=== PATIENT | male | born 1990 | race Caucasian/White ===

== ENCOUNTER 2016-11-12 17:06 | Emergency (ER) | payer SELFPAY ==
[2016-11-12] MEDS ORDERED: Fluor-I-Strip/Ful-Flo OP ONE ×2 (17:33→17:49)
[2016-11-12] MEDS ORDERED: Tetcaine HCl OPHTHALMIC OP ONE ×2 (17:33→17:49)
[2016-11-12] MEDS ORDERED: Eye-Stream Solution OP ONE (17:33)
--- NOTE | 2016-11-12 17:38 | ERPHSYRPT ---
- History of Present Illness Time Seen by Provider: 11/12/16 17:30 Source: patient Exam Limitations: no limitations Patient Subjective Stated Complaint: PT REPORTS IRRITATION TO HIS LEFT EYE BEGINNING DON 1400-STATES HE REMOVED HIS CONTACT ET IRRITATION CONTINSUED- REPORTS TEARING-DENIES CHANGES IN VISION-DENIES INJURY Triage Nursing Assessment: PT PINK WARM ET DRY-REDNESS NOTED TO LEFT EYE-PUPILS REACTIVE Physician History: This is a 26-year-old white male he arrives with complaint of irritation to his left eye symptoms for a day or 2 however it is much worse since this afternoon around 2:00. Patient states that he removed his contact lenses afternoon and he noticed that he had pain in his left eye he has drainage he has not had any vision changes. Past medical history includes high blood pressure. Past surgical history includes tonsillectomy Patient apparently had a problem with his stomach muscles as a child. Timing/Duration: day(s) (irritation left eye for one to 2 days, worse today) Location: left eye Apparent Injury: possibly Associated Symptoms: pain, burning, redness, No sensitivity to light, No matting , No eyelid swelling, No foreign body sensation, No decreased vision, No blurred vision, No double vision Visual Assistive Devices: Contacts Chemical Exposure: No Trauma: No Welding Arc/Tanning Bed Exposure: No Allergies/Adverse Reactions: Penicillins Allergy (Severe, Verified 11/12/16 17:16) Difficulty Breathing Home Medications: No Home Meds 1 ea MC UD 11/12/16 [History] Hx Tetanus, Diphtheria Vaccination/Date Given: No Hx Influenza Vaccination/Date Given: No Hx Pneumococcal Vaccination/Date Given: No Immunizations Up to Date: Yes - Past Medical History Pertinent Past Medical History: Yes Cardiac History: Hypertension - Past Surgical History Past Surgical History: Yes Other Surgical History: stomach muscle 'collapse' as a child - Social History Smoking Status: Current every day smoker How long have you smoked: YRS Exposure to second hand smoke: Yes Drug Use: none Patient Lives Alone: No - Nursing Vital Signs Nursing Vital Signs: Initial Vital Signs Temperature 97.8 F Temperature Source Oral Pulse Rate 67 Respiratory Rate 22 Blood Pressure [Right Arm] 142/91 Pain Intensity 6 - Physical Exam General Appearance: mild distress Vision Acuity Right Eye: 20/50 Vision Acuity Left Eye: 20/100 Eye Exam: left eye: other (eyes PERRLA, EOMI fundi unremarkable left sclera injected left conjunctiva erythematous), bilateral eye: PERRL, EOMI Ears, Nose, Throat Exam: normal ENT inspection, TMs normal, pharynx normal, moist mucous membranes, No dry mucous membranes, No TM abnormal (R), No TM abnormal (L), No pharyngeal erythema, No tonsillar exudate Neck Exam: normal inspection, non-tender, supple, full range of motion Respiratory Exam: normal breath sounds, lungs clear, airway intact, No chest tenderness, No respiratory distress, No diminished breath sounds, No accessory muscle use, No prolonged expirations, No crackles/rales, No rhonchi, No wheezing , No stridor, No pleural rub Cardiovascular Exam: regular rate/rhythm, normal heart sounds, No murmur Gastrointestinal Exam: soft, normal bowel sounds, No tenderness, No distention, No mass, No guarding, No ecchymosis, No pulsatile mass, No rebound, No hernia, No hepatomegaly Extremity Exam: normal inspection, normal range of motion Neurologic: alert, oriented x 3, cooperative, nuclear medicine supervisor II-XII nml as tested, normal mood/affect, nml cerebellar function, nml station & gait, sensation nml, No motor deficits, No sensory deficit Skin Exam: normal color SpO2 Interpretation: normal (99%) SpO2: 99 Oxygen Delivery: Room Air - Course Nursing assessment & vital signs reviewed: Yes Ordered Tests: Active Orders 24 hr Category Date Time Status Visual Acuity STAT Care 11/12/16 17:33 Active Medication Summary Discontinued Medications Generic Name Dose Route Start Last Admin Trade Name Coni PRN Reason Stop Dose Admin Ciprofloxacin 2.5 ml 11/12/16 18:47 Ciloxan Ophth OP 11/12/16 18:48 STAT ONE Eye Irrigation Solution 15 ml 11/12/16 17:33 11/12/16 17:53 Eye-Stream Solution OP 11/12/16 17:34 15 ml STAT ONE Administration Eye Irrigation Solution Confirm 11/12/16 17:49 Eye-Stream Solution Administered 11/12/16 17:50 Dose 30 ml .ROUTE .STK-MED ONE Fluorescein Sodium 1 mg 11/12/16 17:33 11/12/16 17:53 Fcuui-Q-Wancr/Ful-Alexx OP 11/12/16 17:34 1 mg STAT ONE Administration Fluorescein Sodium Confirm 11/12/16 17:49 Itonw-D-Oksdg/Ful-Alexx Administered 11/12/16 17:50 Dose 1 mg OP .STK-MED ONE Tetracaine HCl 2 ml 11/12/16 17:33 11/12/16 17:53 Tetcaine Hcl Ophthalmic OP 11/12/16 17:34 2 ml STAT ONE Administration Tetracaine HCl Confirm 11/12/16 17:49 Tetcaine Hcl Ophthalmic Administered 11/12/16 17:50 Dose 2 ml OP .STK-MED ONE - Progress Progress: improved Progress Note: 11/12/16 18:48 Patient's eyes are inspected eyes PERRLA EOMI fundi are unremarkable. Left sclera is injected left conjunctiva is erythematous. Lids are everted on the left side no foreign bodies are noted. Left eye has tetracaine 0.5% instilled for comfort. Left eye is stained with floor saline. Patient with a small 2 mm abrasion on the left lateral cornea. Left eye is rinsed with sterile eyewash. Nurses Will instill Cipro ophthalmic drops 0.3% in the left eye. Will discharge patient patient has been instructed not to use his contacts patient is to follow-up with his publisher assistant/importer or exporter tomorrow. Will write for [facility] for pain and home with Cipro ophthalmic drops, one to 2 drops, 4 times a day for 5 days. - Departure Time of Disposition: 18:50 Departure Disposition: Home Clinical Impression: Corneal abrasion of left eye due to contact lens Conjunctivitis, left eye Qualifiers: Conjunctivitis type: unspecified Qualified Code(s): H10.9 - Unspecified conjunctivitis Condition: Fair Critical Care Time: No Referrals: DOCTOR,NO FAMILY [Primary Care Provider] - Additional Instructions: Return home. No reading no TV watching computers drive home with window shut. Cipro ophthalmic drops 0.3% one to 2 drops left eye 4 times a day for 5 days. [place] 5/325 #12 one orally every 4-6 hours as needed for pain. Follow-up with your publisher assistant/importer or exporter tomorrow. No contact lenses for one week. Return for acute distress or for severe symptoms Prescriptions: Hydrocodone Bit/Acetaminophen [[place] 5/325Mg] 1 tab PO Q4-6HPRN PRN #12 tablet PRN Reason: Pain
[2016-11-12] MEDS ORDERED: Eye-Stream Solution ONE (17:49)
[2016-11-12] MEDS ORDERED: Ciloxan OPHTH OP ONE (18:47)
[2016-11-12] MEDS ORDERED: Ciloxan OPHTH ONE (19:03)
[2016-11-12 19:23] VITALS: BP 138/86; PULSE 72; O2SAT 100
== END 2016-11-12 19:22 | disposition home or self-care (01) ==
LOC: ED 17:06
DX: H10.9 Unspecified conjunctivitis (principal); H18.822 Corneal disorder due to contact lens, left eye
CPT/HCPCS: 99283

== ENCOUNTER 2018-12-24 20:57 | Emergency (ER) | payer SELFPAY ==
[2018-12-24] MEDS ORDERED: Sodium Chloride 0.9% 1000 ML 1,000 ML IV STA (22:17)
[2018-12-24] MEDS ORDERED: TORAdol 30 mg Injection IV ONE (22:17)
[2018-12-24] MEDS ORDERED: Zofran 4 MG/2 ML VIAL IV ONE (22:17)
--- NOTE | 2018-12-24 22:21 | ERPHSYRPT ---
- History of Present Illness Time Seen by Provider: 12/24/18 22:12 Historian: patient Exam Limitations: no limitations Patient Subjective Stated Complaint: Around 1800 started having lower abd pain across the front, pain spreads to L side, some nausea, no vomiting Triage Nursing Assessment: Pt a/o, ambulates per self, abd soft, large, tender, and worse with palpation, abd sounds present x4 Physician History: 28-year-old white male with history of, anxiety, depression, PTSD, Patient arrives with complaint of suprapubic tube nominal pain radiating both laterally left and right symptoms since 6:00 this evening, Patient states no vomiting positive nausea no diarrhea no melena no hematochezia. No urinary symptoms. Past medical history includes anxiety, depression, PTSD. Past surgical history includes stomach surgery as an infant. Social history includes patient vapes Timing/Duration: today Activities at Onset: none Quality: cramping Abdominal Pain Onset Location: suprapubic Pain Radiation: other (bilateral lower abdomen) Severity of Pain-Max: moderate Severity of Pain-Current: mild Modifying Factors: Improves With: nothing Associated Symptoms: nausea, No back, No chest pain, No diaphoresis, No diarrhea , No fever/chills, No fatigue, No headache, No heartburn, No loss of appetite, No neck pain, No rash, No shortness of breath, No syncope, No testicular pain, No vomiting, No weakness Previous symptoms: no prior history Allergies/Adverse Reactions: Penicillins Allergy (Verified 08/21/17 23:07) Swelling Home Medications: raNITIdine HCl [Ranitidine HCl] 150 mg PO BID 12/24/18 [History] Hx Tetanus, Diphtheria Vaccination/Date Given: Yes Hx Influenza Vaccination/Date Given: No Hx Pneumococcal Vaccination/Date Given: No - Review of Systems Constitutional: No Fever, No Chills Eyes: No Symptoms Ears, Nose, & Throat: No Symptoms Respiratory: No Cough, No Dyspnea Cardiac: No Chest Pain, No Edema, No Syncope Abdominal/Gastrointestinal: Abdominal Pain, Nausea, No Vomiting, No Diarrhea, No Constipation, No Hematemesis, No Hematochezia, No Melena, No Dysphagia, No Appetite Changes Genitourinary Symptoms: No Dysuria Musculoskeletal: No Back Pain, No Neck Pain Skin: No Symptoms, No Rash Neurological: No Dizziness, No Focal Weakness, No Sensory Changes Psychological: No Symptoms Endocrine: No Symptoms All Other Systems: Reviewed and Negative - Past Medical History Pertinent Past Medical History: Yes Psycho-Social History: Anxiety, Depression Other Medical History: PTSD - Past Surgical History Past Surgical History: Yes Gastrointestinal: Other Other Surgical History: stomach surgery at 8 mos - Social History Smoking Status: Former smoker How long have you smoked: 9 Exposure to second hand smoke: Yes Drug Use: none Patient Lives Alone: No - Nursing Vital Signs Nursing Vital Signs: Initial Vital Signs Temperature 98.0 F 12/24/18 21:45 Pulse Rate 65 12/24/18 21:45 Respiratory Rate 20 12/24/18 21:45 Blood Pressure 144/87 12/24/18 21:45 O2 Sat by Pulse Oximetry 100 12/24/18 21:45 Pain Scale Pain Intensity 6 - Physical Exam General Appearance: no apparent distress, alert Eye Exam: PERRL/EOMI, eyes nml inspection Ears, Nose, Throat Exam: normal ENT inspection, pharynx normal, moist mucous membranes Neck Exam: normal inspection, non-tender, supple, full range of motion Respiratory Exam: normal breath sounds, lungs clear, No respiratory distress Cardiovascular Exam: regular rate/rhythm, normal heart sounds, capillary refill <2 sec Gastrointestinal/Abdomen Exam: soft, normal bowel sounds, tenderness ( suprapubic tenderness), No distention, No mass, No guarding, No ecchymosis, No pulsatile mass, No rebound, No hernia, No hepatomegaly, No organomegaly, No splenomegaly, No bruit Back Exam: normal inspection, normal range of motion, No CVA tenderness, No vertebral tenderness Extremity Exam: normal inspection, normal range of motion, pelvis stable Neurologic Exam: alert, oriented x 3, cooperative, bale tie machine operator II-XII nml as tested, normal mood/affect, nml cerebellar function, sensation nml, No motor deficits Skin Exam: normal color, warm, dry SpO2 Interpretation: normal (100%) SpO2: 100 - CT Exams Abdomen/Pelvis CT Interpretation: Tele-radiologist Report (CT abdomen and pelvis: Impression 1. Diffuse fatty infiltration of the liver. 2. Tiny fat containing umbilical her with possible fat incaration. 3. Appendix is visualized and appears to be normal.) Ordered Tests: Active Orders 24 hr Category Date Time Status IV Insertion STAT Care 12/24/18 22:17 Active ABDOMEN AND PELVIS W CONTRAST [CT] Stat Exams 12/25/18 00:22 Taken AMYLASE Stat Lab 12/24/18 22:35 Completed CBC W DIFF Stat Lab 12/24/18 22:35 Completed CMP Stat Lab 12/24/18 22:35 Completed LIPASE Stat Lab 12/24/18 22:35 Completed UA W/RFX UR CULTURE Stat Lab 12/24/18 23:45 Completed Medication Summary Discontinued Medications Generic Name Dose Route Start Last Admin Trade Name Coni PRN Reason Stop Dose Admin Sodium Chloride 1,000 mls @ 999 mls/hr 12/24/18 22:17 12/25/18 01:25 Sodium Chloride 0.9% 1000 Ml IV 12/24/18 23:17 Infused .Q1H1M STA Infusion Sodium Chloride Confirm 12/24/18 22:42 Sodium Chloride 0.9% 1000 Ml Administered 12/24/18 22:43 Dose 1,000 mls @ ud .ROUTE .STK-MED ONE Ketorolac Tromethamine 30 mg 12/24/18 22:17 12/24/18 22:44 Toradol 30 Mg Injection IV 12/24/18 22:18 30 mg STAT ONE Administration Ketorolac Tromethamine Confirm 12/24/18 22:42 Toradol 30 Mg Injection Administered 12/24/18 22:43 Dose 30 mg .ROUTE .STK-MED ONE Ondansetron HCl 4 mg 12/24/18 22:17 12/24/18 22:44 Zofran 4 Mg/2 Ml Vial IV 12/24/18 22:18 4 mg STAT ONE Administration Ondansetron HCl Confirm 12/24/18 22:42 Zofran 4 Mg/2 Ml Vial Administered 12/24/18 22:43 Dose 4 mg .ROUTE .STK-MED ONE Lab/Rad Data: Laboratory Result Diagrams 12/24/18 22:35 12/24/18 22:35 Laboratory Results 12/24/18 12/24/18 12/24/18 Range/Units 23:45 22:35 22:35 WBC 9.4 (4.0-10.5) K/mm3 RBC 5.62 H (4.1-5.6) M/mm3 Hgb 16.6 (12.5-18.0) gm/dl Hct 48.5 (42-50) % MCV 86.3 (78-100) fl MCH 29.5 (26-32) pg MCHC 34.2 (32-36) g/dl RDW 12.4 (11.5-14.0) % Plt Count 275 (150-450) K/mm3 MPV 10.4 H (6-9.5) fl Gran % 72.1 H (36.0-66.0) % Eos # (Auto) 0.04 (0-0.5) Absolute Lymphs (auto) 1.91 (1.0-4.6) Absolute Monos (auto) 0.66 (0.0-1.3) Lymphocytes % 20.3 L (24.0-44.0) % Monocytes % 7.0 (0.0-12.0) % Eosinophils % 0.4 (0.00-5.0) % Basophils % 0.2 (0.0-0.4) % Absolute Granulocytes 6.79 (1.4-6.9) Basophils # 0.02 (0-0.4) Sodium 139 (137-145) mmol/L Potassium 4.4 (3.5-5.1) mmol/L Chloride 101 (98-107) mmol/L Carbon Dioxide 30 (22-30) mmol/L Anion Gap 13.0 (5-15) MEQ/L BUN 21 H (9-20) mg/dL Creatinine 1.07 (0.66-1.25) mg/dL Estimated GFR > 60.0 ML/MIN Glucose 118 H (74-106) mg/dL Calcium 10.0 (8.4-10.2) mg/dL Total Bilirubin 1.10 (0.2-1.3) mg/dL AST 53 (17-59) U/L ALT 70 H (0-50) U/L Alkaline Phosphatase 77 (38-126) U/L Serum Total Protein 8.5 H (6.3-8.2) g/dL Albumin 5.0 (3.5-5.0) g/dL Amylase 86 (30-110) U/L Lipase 37 (23-300) U/L Urine Color YELLOW (YELLOW) Urine Appearance CLEAR (CLEAR) Urine pH 5.0 (5-6) Ur Specific Simpson 1.024 (1.005-1.025) Urine Protein NEGATIVE (Negative) Urine Ketones NEGATIVE (NEGATIVE) Urine Blood SMALL (0-5) Jorge/ul Urine Nitrite NEGATIVE (NEGATIVE) Urine Bilirubin NEGATIVE (NEGATIVE) Urine Urobilinogen NEGATIVE (0-1) mg/dL Ur Leukocyte Esterase NEGATIVE (NEGATIVE) Urine WBC (Auto) NONE (0-5) /HPF Urine RBC (Auto) 3-5 (0-2) /HPF U Epithel Cells (Auto) NONE (FEW) /HPF Urine Bacteria (Auto) NONE (NEGATIVE) /HPF Urine Mucus (Auto) SLIGHT (NEGATIVE) /HPF Urine Culture Reflexed NO (NO) Urine Glucose NEGATIVE (NEGATIVE) mg/dL - Progress Progress: improved Progress Note: 12/25/18 00:23 28-year-old white male arrives with complaint of pain in the suprapubic area radiating both right and left .symptoms since this evening patient nauseous. Patient improved but still with abdominal pain in the above noted area labs essentially normal however patient states he continues with his pain. Will go ahead and obtain CT abdomen and pelvis with contrast to rule out appendicitis. 12/25/18 02:[address] remarkable for diffuse fatty infiltration of the liver, tiny fat containing umbilical hernia with possible fat incarceration, appendix is normal. Patient's abdominal pain is in the low suprapubic area. Patient is not in acute distress at this time. Will discharge patient. Patient to follow-up with his family doctor. - Departure Time of Disposition: 02:36 Departure Disposition: Home Clinical Impression: Abdominal pain Qualifiers: Abdominal location: lower abdomen, unspecified Qualified Code(s): R10.30 - Lower abdominal pain, unspecified Condition: Fair Critical Care Time: No Referrals: DOCTOR,NO FAMILY [Primary Care Provider] - Additional Instructions: Return home. Plenty of fluids. Clear fluids only 24-48 hours if abdominal pain. Follow-up with your family doctor if symptoms no better in 24-48 hours, worse, or persist longer than one week. Return for acute distress or for severe symptoms. Tylenol every 4 hours as needed for pain.
[2018-12-24 22:36] LABS: BASOPHIL % 0.2 % (0.0-0.4); Basophil (Absolute #) 0.02 (0-0.4); Eosinophil % 0.4 % (0.00-5.0); Eosinophil (Absolute #) 0.04 (0-0.5); Granulocyte Absolute (ANC) 6.79 (1.4-6.9); Granulocytes % 72.1 % (36.0-66.0); Hematocrit 48.5 % (42-50); Hemoglobin 16.6 gm/dl (12.5-18.0); Lymphocyte (Absolute #) 1.91 (1.0-4.6); Lymphocytes % 20.3 % (24.0-44.0); Mean Cell Volume 86.3 fl (78-100); Mean Corpuscular Hemoglobin 29.5 pg (26-32); Mean Corpuscular Hgb Concent. 34.2 g/dl (32-36); Mean Platelet Volume 10.4 fl (6-9.5); Monocyte (Absolute #) 0.66 (0.0-1.3); Platelet Count 275 K/mm3 (150-450); Red Blood Count 5.62 M/mm3 (4.1-5.6); Red Cell Distribution Width 12.4 % (11.5-14.0); White Blood Count 9.4 K/mm3 (4.0-10.5)
[2018-12-24] MEDS ORDERED: Zofran 4 MG/2 ML VIAL ONE (22:42)
[2018-12-24] MEDS ORDERED: Sodium Chloride 0.9% 1000 ML 1,000 ML ONE (22:42)
[2018-12-24] MEDS ORDERED: TORAdol 30 mg Injection ONE (22:42)
[2018-12-24 22:51] LABS: ALKALINE PHOSPHATASE 77 U/L (38-126); AMYLASE 86 U/L (30-110); BLOOD UREA NITROGEN 21 mg/dL (9-20); CHLORIDE 101 mmol/L (98-107); Carbon Dioxide 30 mmol/L (22-30); Creatinine 1 1.07 mg/dL (0.66-1.25); Glucose 118 mg/dL (74-106); LIPASE 37 U/L (23-300); Potassium 4.4 mmol/L (3.5-5.1); SGOT/AST 53 U/L (17-59); SGPT/ALT 70 U/L (0-50); SODIUM 139 mmol/L (137-145); Total Protein 8.5 g/dL (6.3-8.2)
[2018-12-25 00:05] LABS: Appearance CLEAR (CLEAR); Bilirubin NEGATIVE (NEGATIVE); Glucose NEGATIVE (NEGATIVE); Ketones NEGATIVE (NEGATIVE); Leukocyte Esterase NEGATIVE (NEGATIVE); Mucus SLIGHT /HPF (NEGATIVE); Nitrite NEGATIVE (NEGATIVE); Protein,Urine Dip NEGATIVE (Negative); Specific Gravity 1.024 (1.005-1.025); Urobilinogen NEGATIVE mg/dL (0-1)
[2018-12-25 00:12] LABS: Blood SMALL Ery/ul (0-5)
[2018-12-25 00:34] VITALS: BP 109/72
[2018-12-25 01:47] VITALS: PULSE 80; O2SAT 100
--- NOTE | 2018-12-25 09:01 | XRAY ---
Indication: Suprapubic pain. Nausea. Multiple contiguous axial images obtained through the abdomen and pelvis using 80 cc Isovue 370 contrast only. Comparison: None Lung bases demonstrates mild bibasilar dependent atelectasis. No infiltrate or effusion. Heart is not enlarged. Small hiatal hernia. Noncontrasted stomach and bowel loops appear nonobstructed. Normal appendix. Mild scattered colonic fecal debris throughout. No free fluid/air. Diffuse fatty liver without focal solid/cystic mass. 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 Remaining liver, gallbladder, pancreas, spleen, adrenal glands, kidneys, ureters, bladder, and aorta appear unremarkable. No pathologic retroperitoneal lymphadenopathy. Osseous structures intact. No ventral or inguinal hernias. Impression: 1. Mild fecal stasis without obstruction, fatty liver, and small hiatal hernia. 2. 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 3. Remaining CT abdomen/pelvis with contrast exam is negative. Comment: Preliminary interpretation was made by [facility]. No critical discrepancy. CTDI 23.68
== END 2018-12-25 03:01 | disposition home or self-care (01) ==
LOC: ED 20:57 → MERGE 20:57 → ED 12-25 03:01
DX: R10.30 Lower abdominal pain, unspecified (principal); F41.8 Other specified anxiety disorders; F43.10 Post-traumatic stress disorder, unspecified
CPT/HCPCS: 36000; 36415; 74177; 80053; 81001; 82150; 83690; 85025; 96360; 96374; 96375; 99284; J1885; J2405

== ENCOUNTER 2022-05-26 18:48 | Emergency (ER) | payer SELFPAY ==
[2022-05-26] MEDS ORDERED: NORCO 5/325 MG PO ONE (19:23)
[2022-05-26] MEDS ORDERED: CLEOCIN 150 MG CAPSULE PO ONE (19:24)
[2022-05-26] MEDS ORDERED: NORCO 5/325 MG ONE (19:26)
[2022-05-26] MEDS ORDERED: CLEOCIN 150 MG CAPSULE ONE (19:26)
--- NOTE | 2022-05-26 19:38 | ERPHSYRPT ---
- History of Present Illness Time Seen by Provider: 05/26/22 18:55 Source: patient Exam Limitations: no limitations Patient Subjective Stated Complaint: pt here for toothache to lower left jaw for 2 days, he is from out of town Triage Nursing Assessment: pt alert, resp easy, face mask in place, has decay to multi teeth, Physician History: 24-year-old male presented to the ER with chief complaint of left lower jaw pain for the last couple of days. Has multiple dental caries with periodontal disease. Moderate to severe sharp pain with movements of jaw and some associated swelling. No fever or chills reported. Timing/Duration: gradual onset, days (2) Severity: moderate ENT Location: dental Prearrival Treatment: over the counter meds Associated Symptoms: facial pain/swelling, tooth pain Allergies/Adverse Reactions: Penicillins Allergy (Severe, Verified 05/26/22 18:58) Difficulty Breathing Home Medications: Omeprazole Magnesium [Prilosec Otc] 20 mg PO DAILY 05/26/22 [History] Hx Tetanus, Diphtheria Vaccination/Date Given: No Hx Influenza Vaccination/Date Given: No Hx Pneumococcal Vaccination/Date Given: No Immunizations Up to Date: Yes Travel Risk - International Travel Have you traveled outside of the country in past 3 weeks: No - Coronavirus Screening Are you exhibiting any of the following symptoms?: No Close contact with a COVID-19 positive Pt in past 14-21 Days: No - Vaccine Status Have you recieved a Covid-19 vaccination: No - Review of Systems Constitutional: No Symptoms Ears, Nose, & Throat: Mouth Pain, Mouth Swelling, Loose Teeth Respiratory: No Symptoms Cardiac: No Symptoms Abdominal/Gastrointestinal: No Symptoms Musculoskeletal: No Symptoms Skin: No Symptoms Neurological: No Symptoms Hematologic/Lymphatic: No Symptoms Immunological/Allergic: No Symptoms - Past Medical History Pertinent Past Medical History: Yes Cardiac History: Hypertension Psycho-Social History: Depression, Anxiety Other Medical History: PTSD - Past Surgical History Past Surgical History: Yes Gastrointestinal: Other Other Surgical History: stomach surgery at 8 mos - Social History Smoking Status: Never smoker How long have you smoked: 9 Exposure to second hand smoke: No Drug Use: marijuana Patient Lives Alone: No - Nursing Vital Signs Nursing Vital Signs: Initial Vital Signs Pulse Rate 64 05/26/22 18:54 Respiratory Rate 18 05/26/22 18:54 Blood Pressure 159/86 05/26/22 18:54 O2 Sat by Pulse Oximetry 97 05/26/22 18:54 Pain Scale Pain Intensity 10 - Physical Exam General Appearance: no apparent distress, alert Eye Exam: bilateral eye: normal inspection, PERRL, EOMI Ear Exam: bilateral ear: auricle normal, canal normal, TM normal Nasal Exam: normal inspection Throat Exam: normal, pharynx normal, dental tenderness (Left lower premolar and molar with caries and periodontal disease, mild gingival tenderness. No fluctuation.), moist mucus membranes Neck Exam: normal inspection, non-tender, supple, full range of motion Cardiovascular/Respiratory Exam: normal breath sounds, regular rate/rhythm Neurologic Exam: alert, oriented x 3, cooperative, vamp seamer II-XII nml as tested Skin Exam: normal color SpO2 Interpretation: normal SpO2: 97 O2 Delivery: Room Air Ordered Tests: Medication Summary Discontinued Medications Generic Name Dose Route Start Last Admin Trade Name Coni PRN Reason Stop Dose Admin Hydrocodone Bitart/Acetaminophen 1 tab 05/26/22 19:23 05/26/22 19:27 Hydrocodone/Apap 5/325 Mg Tablet PO 05/26/22 19:24 1 tab STAT ONE Administration Hydrocodone Bitart/Acetaminophen Confirm 05/26/22 19:26 Hydrocodone/Apap 5/325 Mg Tablet Administered 05/26/22 19:27 Dose 1 tab .ROUTE .STK-MED ONE Clindamycin HCl 300 mg 05/26/22 19:24 05/26/22 19:27 Clindamycin Hcl 150 Mg Capsule PO 05/26/22 19:25 300 mg STAT ONE Administration Clindamycin HCl Confirm 05/26/22 19:26 Clindamycin Hcl 150 Mg Capsule Administered 05/26/22 19:27 Dose 300 mg .ROUTE .STK-MED ONE - Progress Progress: pain not gone completely Progress Note: 05/26/22 19:36 Started on clindamycin. Given symptomatic treatment for pain. We will continue with NSAIDs and clindamycin to go home and outpatient dental follow-up recommended. Counseled pt/family regarding: diagnosis, need for follow-up - Departure Departure Disposition: Home Clinical Impression: Dental infection Condition: Stable Critical Care Time: No Referrals: DOCTOR,NO FAMILY [Primary Care Provider] - Follow up/PCP as directed KAY MARINELLI DDS [NON-STAFF PHY W/O PRIVILEGES] - Follow up/PCP as directed (In 2 days for reevaluation) Instructions: Tooth Abscess (DC), Dental Pain (DC) Additional Instructions: Take Tylenol/ibuprofen as needed for pain. Follow-up with dentist for reevaluation. Return to ER for any worsening. Prescriptions: Ibuprofen 600 mg PO Q6HPRN PRN 10 Days #20 tablet PRN Reason: Pain clindamycin HCL [Clindamycin HCl] 300 mg PO QID 7 Days #28 cap
[2022-05-26 19:48] VITALS: BP 133/81; PULSE 60; O2SAT 99
== END 2022-05-26 19:46 | disposition home or self-care (01) ==
LOC: ED 18:48
DX: K04.7 Periapical abscess without sinus (principal); R68.84 Jaw pain; I10 Essential (primary) hypertension; Z28.310 Unvaccinated for COVID-19
CPT/HCPCS: 99282; A9270-GY

== ENCOUNTER 2022-10-09 19:09 | Emergency (ER) | payer OTHER ==
--- NOTE | 2022-10-09 19:15 | ERPHSYRPT ---
- History of Present Illness Time Seen by Provider: 10/09/22 19:15 Source: patient Exam Limitations: no limitations Physician History: This is a right-handed 32-year-old white male who accidentally slammed his left hand primarily palmar aspect with a sledgehammer prior to arrival while splitting wood. The area is swollen tender and ecchymotic. Occurred: just prior to arrival Method of Injury: direct blow Quality: constant, aching (Sledgehammer), throbbing Severity of Pain-Max: moderate Severity of Pain-Current: moderate Extremities Pain Location: hand: left, thumb: left Modifying Factors: Improves With: movement Associated Symptoms: none Allergies/Adverse Reactions: Penicillins Allergy (Severe, Verified 05/26/22 18:58) Difficulty Breathing Home Medications: Omeprazole Magnesium [Prilosec Otc] 20 mg PO DAILY 05/26/22 [History] Hx Tetanus, Diphtheria Vaccination/Date Given: No Hx Influenza Vaccination/Date Given: No Hx Pneumococcal Vaccination/Date Given: No Travel Risk - International Travel Have you traveled outside of the country in past 3 weeks: No - Coronavirus Screening Are you exhibiting any of the following symptoms?: No Close contact with a COVID-19 positive Pt in past 14-21 Days: No - Vaccine Status Have you recieved a Covid-19 vaccination: No - Review of Systems Constitutional: No Symptoms Eyes: No Symptoms Ears, Nose, & Throat: No Symptoms Respiratory: No Symptoms Cardiac: No Symptoms Abdominal/Gastrointestinal: No Symptoms Genitourinary Symptoms: No Symptoms Musculoskeletal: Injury (Left hand) Skin: No Symptoms Neurological: No Symptoms Psychological: No Symptoms Endocrine: No Symptoms Hematologic/Lymphatic: No Symptoms Immunological/Allergic: No Symptoms All Other Systems: Reviewed and Negative - Past Medical History Pertinent Past Medical History: Yes Cardiac History: Hypertension Psycho-Social History: Depression, Anxiety Other Medical History: PTSD - Past Surgical History Past Surgical History: Yes Gastrointestinal: Other Other Surgical History: stomach surgery at 8 mos - Social History Smoking Status: Never smoker How long have you smoked: 9 Exposure to second hand smoke: No Drug Use: marijuana Patient Lives Alone: No - Nursing Vital Signs Nursing Vital Signs: Initial Vital Signs Temperature 97.1 F 10/09/22 19:11 Pulse Rate 78 10/09/22 19:11 Respiratory Rate 18 10/09/22 19:11 Blood Pressure 156/83 10/09/22 19:11 O2 Sat by Pulse Oximetry 98 10/09/22 19:11 Pain Scale Pain Intensity 6 - Physical Exam General Appearance: no apparent distress, alert, anxiety Eyes, Ears, Nose, Throat Exam: normal ENT inspection, moist mucous membranes Neck Exam: normal inspection, non-tender, supple, full range of motion Cardiovascular/Respiratory Exam: chest non-tender, no respiratory distress Abdominal Exam: non-tender Back Exam: normal inspection, normal range of motion, No CVA tenderness, No vertebral tenderness Shoulder Exam: normal inspection, non-tender, no evidence of injury, normal ROM Elbow/Forearm Exam: normal inspection, non-tender, no evidence of injury, normal ROM Wrist Exam: normal inspection, non-tender, no evidence of injury, normal ROM Hand Exam: ecchymosis, soft tissue tenderness, swelling Neuro/Tendon Exam: normal sensation, normal motor functions, normal tendon functions, responds to pain, no evidence tendon injury Mental Status Exam: alert, oriented x 3, cooperative Skin Exam: ecchymosis SpO2 Interpretation: normal O2 Delivery: Room Air - Course Nursing assessment & vital signs reviewed: Yes Ordered Tests: Active Orders 24 hr Category Date Time Status FINGER(S) Stat Exams 10/09/22 19:16 Taken Medication Summary Discontinued Medications Generic Name Dose Route Start Last Admin Trade Name Coni PRAyla Reason Stop Dose Admin Ibuprofen 600 mg 10/09/22 19:27 10/09/22 19:33 Ibuprofen 600 Mg Tablet PO 10/09/22 19:28 600 mg STAT ONE Administration Ibuprofen Confirm 10/09/22 19:32 Ibuprofen 600 Mg Tablet Administered 10/09/22 19:33 Dose 600 mg .ROUTE .STK-MED ONE Oxycodone/Acetaminophen 1 tab 10/09/22 19:27 10/09/22 19:34 Oxycodone Hcl/Apap 5 Mg/325 Mg Tablet PO 10/09/22 19:28 1 tab STAT STA Administration Oxycodone/Acetaminophen Confirm 10/09/22 19:32 Oxycodone Hcl/Apap 5 Mg/325 Mg Tablet Administered 10/09/22 19:33 Dose 1 tab .ROUTE .STK-MED ONE - Progress Progress: improved, pain not gone completely Progress Note: 10/09/22 19:36 X-ray left hand shows no acute fracture or dislocation. Counseled pt/family regarding: diagnosis, need for follow-up, rad results - Departure Departure Disposition: Home Clinical Impression: Contusion of left hand Condition: Stable Critical Care Time: No Referrals: DOCTOR,NO FAMILY [Primary Care Provider] - Follow up/PCP as directed Additional Instructions: Ice bath (ice plus water) 3 times a day for the next 72 hours. Add ibuprofen 600 mg orally with food 3 times a day for the next 5 days. Follow-up with your primary care provider for further evaluation management. We will be in over read of the x-ray by radiology tomorrow morning. If the findings are different than what we were told this evening, we will contact you before noon tomorrow. Prescriptions: Oxycodone HCl/Acetaminophen [Percocet 5-325 mg Tablet] 1 each PO Q8H PRN PRN #6 tablet MDD 3 PRN Reason: Moderate To Severe Pain
[2022-10-09 19:20] VITALS: BP 156/83; PULSE 78; O2SAT 98
[2022-10-09] MEDS ORDERED: MOTRIN 600 MG PO ONE (19:27)
[2022-10-09] MEDS ORDERED: PERCOCET TABLET 5/325MG PO STA (19:27)
[2022-10-09] MEDS ORDERED: PERCOCET TABLET 5/325MG ONE (19:32)
[2022-10-09] MEDS ORDERED: MOTRIN 600 MG ONE (19:32)
--- NOTE | 2022-10-10 08:39 | XRAY ---
Indication: Pain following injury. Comparison: None 3 view left thumb obtained. No bony, articular, or soft tissue abnormalities.
== END 2022-10-09 19:46 | disposition home or self-care (01) ==
LOC: ED 19:09
DX: S60.222A Contusion of left hand, initial encounter (principal); W20.8XXA Other cause of strike by thrown, projected or falling object, initial encounter; M79.642 Pain in left hand; Z28.310 Unvaccinated for COVID-19; I10 Essential (primary) hypertension; Z79.891 Long term (current) use of opiate analgesic
CPT/HCPCS: 73140; 99283; A9270-GY

== ENCOUNTER 2022-11-12 16:36 | Emergency (ER) | payer OTHER ==
--- NOTE | 2022-11-12 16:47 | ERPHSYRPT ---
- History of Present Illness Time Seen by Provider: 11/12/22 16:47 Source: patient, family Exam Limitations: no limitations Physician History: This is a right-handed 32-year-old white male who accidentally cut his left thumb with a kitchen knife prior to arrival. Patient tetanus status is unknown at this time. Occurred: just prior to arrival Method of Injury: other (Accidental laceration) Severity of Pain-Max: mild Severity of Pain-Current: mild Extremities Pain Location: thumb: left (Half a centimeter in laceration) Modifying Factors: Improves With: nothing Associated Symptoms: none Allergies/Adverse Reactions: Penicillins Allergy (Severe, Verified 11/12/22 16:50) Difficulty Breathing Home Medications: Omeprazole Magnesium [Prilosec Otc] 20 mg PO DAILY 05/26/22 [History] Hx Tetanus, Diphtheria Vaccination/Date Given: No Hx Influenza Vaccination/Date Given: No Hx Pneumococcal Vaccination/Date Given: No Travel Risk - International Travel Have you traveled outside of the country in past 3 weeks: No - Coronavirus Screening Are you exhibiting any of the following symptoms?: No Close contact with a COVID-19 positive Pt in past 14-21 Days: No - Vaccine Status Have you recieved a Covid-19 vaccination: No - Review of Systems Constitutional: No Symptoms Eyes: No Symptoms Ears, Nose, & Throat: No Symptoms Respiratory: No Symptoms Cardiac: No Symptoms Abdominal/Gastrointestinal: No Symptoms Genitourinary Symptoms: No Symptoms Musculoskeletal: No Symptoms Skin: Other (Laceration dorsal aspect left thumb) Neurological: No Symptoms Psychological: No Symptoms Endocrine: No Symptoms Hematologic/Lymphatic: No Symptoms Immunological/Allergic: No Symptoms All Other Systems: Reviewed and Negative - Past Medical History Pertinent Past Medical History: Yes Cardiac History: Hypertension Psycho-Social History: Depression, Anxiety Other Medical History: PTSD - Past Surgical History Past Surgical History: Yes Gastrointestinal: Other Other Surgical History: stomach surgery at 8 mos - Social History Smoking Status: Never smoker How long have you smoked: 9 Exposure to second hand smoke: No Drug Use: marijuana Patient Lives Alone: No - Nursing Vital Signs Nursing Vital Signs: Initial Vital Signs Temperature 98.4 F 11/12/22 16:49 Pulse Rate 82 11/12/22 16:49 Respiratory Rate 18 11/12/22 16:49 Blood Pressure 150/93 11/12/22 16:49 O2 Sat by Pulse Oximetry 97 11/12/22 16:49 Pain Scale Pain Intensity 8 - Physical Exam General Appearance: no apparent distress, alert Eyes, Ears, Nose, Throat Exam: normal ENT inspection, moist mucous membranes Neck Exam: normal inspection, non-tender, supple, full range of motion Cardiovascular/Respiratory Exam: chest non-tender, no respiratory distress Abdominal Exam: non-tender Back Exam: normal inspection, normal range of motion, No CVA tenderness, No vertebral tenderness Shoulder Exam: normal inspection, non-tender, no evidence of injury, normal ROM Elbow/Forearm Exam: normal inspection, non-tender, no evidence of injury, normal ROM Wrist Exam: normal inspection, non-tender, no evidence of injury, normal ROM Hand Exam: normal ROM, laceration (0.5 cm laceration of skin, dorsal aspect, left thumb, neurovascularly intact, tendon intact) Neuro/Tendon Exam: normal sensation, normal motor functions, normal tendon functions, responds to pain, no evidence tendon injury Mental Status Exam: alert, oriented x 3 Skin Exam: normal color, warm, dry, laceration (0.5 cm laceration dorsal aspect left thumb) SpO2 Interpretation: normal O2 Delivery: Room Air Procedures - Laceration/Wound Repair Left Dorsal Hand Time of Procedure: 18:10 Wound Location: Left, hand (Dorsal aspect left thumb) Wound Length (cm): 0.5 Wound's Depth, Shape: superficial, linear Wound Explored: clean (No foreign body noted. Evaluation performed in a bloodless field to the base.) Irrigated: Yes Hibiclens Prep: Yes Wound Repaired With: Steri-strips, Dermabond Progress: 11/12/22 18:10 Area was cleaned and dried with Hibiclens/normal saline solution. There was dried with 4 x 4 gauze. The area was then cleaned with benzoin solution, Dermabond glue was placed to approximate the skin edges followed by half-inch Steri-Strips. Pressure dressing was applied as was a thumb splint. There were no complications. Patient told procedure well Ordered Tests: Medication Summary Discontinued Medications Generic Name Dose Route Start Last Admin Trade Name Freq PRN Reason Stop Dose Admin Diphtheria/Tetanus/Acell Pertussis 0.5 ml 11/12/22 18:04 Tdap --Diph,Pertuss(Acell),Tet Vac/Pf 0.5 Ml Vial IM 11/12/22 18:05 .ONCE ONE - Departure Departure Disposition: Home Clinical Impression: Laceration of left thumb Condition: Stable Critical Care Time: No Referrals: DOCTOR,NO FAMILY [Primary Care Provider] - Follow up/PCP as directed Additional Instructions: Keep the current dressing in place and in a splint for 48 hours. After 48 hours, may remove the splint and the dressing. Leave the Steri-Strips in place until they fall off on their own in approximately 7 days. As they are curling up, do not pull them off. Use Tylenol and ibuprofen for pain control.
[2022-11-12 16:50] VITALS: O2SAT 97
[2022-11-12] MEDS ORDERED: Adacel Vial IM ONE ×2 (18:04→18:21)
[2022-11-12 18:35] VITALS: BP 153/82; PULSE 76
== END 2022-11-12 18:44 | disposition home or self-care (01) ==
LOC: ED 16:36
DX: S61.012A Laceration without foreign body of left thumb without damage to nail, initial encounter (principal); W26.0XXA Contact with knife, initial encounter; I10 Essential (primary) hypertension; Z28.310 Unvaccinated for COVID-19
CPT/HCPCS: 12001; 90471; 90715; 99282

== ENCOUNTER 2023-09-27 07:01 | Emergency (ER) | payer SELFPAY ==
[2023-09-27 07:37] VITALS: RESP 18; TEMP 97.3; O2SAT 98
--- NOTE | 2023-09-27 08:00 | ERPHSYRPT ---
- History of Present Illness Time Seen by Provider: 09/27/23 07:40 Source: patient Exam Limitations: no limitations Patient Subjective Stated Complaint: Shoulder pain (Right) Triage Nursing Assessment: Patient ambulated back to ED and transferred self to bed. Patient A+O X3. Patient's skin pink, warm and dry. Patient complains of right shoulder pain that goes into back and chest when moving 7/10. Patient states he lifted on his disabled dad a few days ago and has been hurting since. Physician History: Patient is a 33-year-old white male who on Saturday had to exert himself severely to get his disabled father back into his wheelchair after he suffered a fall into a tub. He has had pain in his right shoulder and right scapular area since that time pain is worse with movement or deep breath. Occurred: days ago (5) Quality: aching, burning, cramping Severity of Pain-Max: moderate Severity of Pain-Current: moderate Extremities Pain Location: shoulder: right (Right shoulder and over the scapula and rhomboids on the right.) Modifying Factors: Improves With: movement Associated Symptoms: back pain Allergies/Adverse Reactions: Penicillins Allergy (Severe, Verified 09/27/23 07:28) Difficulty Breathing Hx Tetanus, Diphtheria Vaccination/Date Given: No Hx Influenza Vaccination/Date Given: No Hx Pneumococcal Vaccination/Date Given: No Immunizations Up to Date: Yes Travel Risk - International Travel Have you traveled outside of the country in past 3 weeks: No - Coronavirus Screening Are you exhibiting any of the following symptoms?: No Close contact with a COVID-19 positive Pt in past 14-21 Days: No - Vaccine Status Have you recieved a Covid-19 vaccination: No - Review of Systems Constitutional: No Fever, No Chills Eyes: No Symptoms Ears, Nose, & Throat: No Symptoms Respiratory: No Cough, No Dyspnea Cardiac: No Chest Pain, No Edema, No Syncope Abdominal/Gastrointestinal: No Abdominal Pain, No Nausea, No Vomiting, No Diarrhea Genitourinary Symptoms: No Dysuria Musculoskeletal: Myalgias, No Back Pain, No Neck Pain Skin: No Rash Neurological: No Dizziness, No Focal Weakness, No Sensory Changes Psychological: No Symptoms Endocrine: No Symptoms All Other Systems: Reviewed and Negative - Past Medical History Pertinent Past Medical History: Yes Cardiac History: Hypertension Psycho-Social History: Depression, Anxiety Other Medical History: PTSD - Past Surgical History Past Surgical History: Yes Gastrointestinal: Other Other Surgical History: stomach surgery at 8 mos - Social History Smoking Status: Never smoker How long have you smoked: 9 Exposure to second hand smoke: No Drug Use: marijuana Patient Lives Alone: No - Nursing Vital Signs Nursing Vital Signs: Initial Vital Signs Temperature 97.3 F 09/27/23 07:31 Pulse Rate 79 09/27/23 07:31 Respiratory Rate 18 09/27/23 07:31 Blood Pressure 165/101 09/27/23 07:31 O2 Sat by Pulse Oximetry 98 09/27/23 07:31 Pain Scale Pain Intensity 7 - Physical Exam General Appearance: alert Eyes, Ears, Nose, Throat Exam: moist mucous membranes Neck Exam: non-tender, supple Cardiovascular/Respiratory Exam: chest non-tender, normal breath sounds, regular rate/rhythm, no respiratory distress Abdominal Exam: non-tender, No guarding Back Exam: normal inspection, No vertebral tenderness Shoulder Exam: bone tenderness (Examination of the right shoulder and scapular area shows tenderness over the rhomboid on the right, increased tenderness with palpation and movement.) Elbow/Forearm Exam: normal inspection, non-tender, no evidence of injury Wrist Exam: normal inspection, non-tender, no evidence of injury Hand Exam: normal inspection, non-tender, no evidence of injury Neuro/Tendon Exam: normal sensation, normal motor functions Mental Status Exam: alert, oriented x 3, cooperative Skin Exam: normal color, warm, dry SpO2 Interpretation: normal SpO2: 98 O2 Delivery: Room Air - Course Nursing assessment & vital signs reviewed: Yes - Radiology Exams Chest X-ray Interpretation: Interpreted by me, Negative Right Ribs X-ray Interpretation: Interpreted by me, Negative Ordered Tests: Active Orders 24 hr Category Date Time Status CHEST 1 VIEW (PORTABLE) Stat Exams 09/27/23 07:32 Taken RIBS UNILATERAL Stat Exams 09/27/23 07:30 Taken - Progress Progress: unchanged Medical Desision Making - Diagnostic Testing Radiological Interpretation: Interpreted by me - Risk of complications Minimal Risk: Minimal risk of morbidity - Departure Departure Disposition: Home Clinical Impression: Rhomboid muscle strain Condition: Stable Critical Care Time: No Referrals: DOCTOR,NO FAMILY [Primary Care Provider] - Follow up/PCP as directed Instructions: Shoulder Sprain (DC) Additional Instructions: Additional instructions given Rx for him to put heat to the area at least 20 minutes 3-4 times a day and no straining lifting pulling pushing etc. until the pain is better if not improved in 4 to 5 days he needs to be rechecked Prescriptions: Hydrocodone/Acetaminophen [Hydrocodone-Acetamin 5-325 mg] 1 tab PO Q6HPRN PRN 3 Days #12 tablet MDD 4 PRN Reason: Pain
[2023-09-27 08:58] VITALS: BP 138/91; PULSE 72
--- NOTE | 2023-09-27 09:02 | XRAY ---
Indication: Pain 5 days. Comparison: None 2 view right ribs demonstrates nondisplaced lateral 5 rib fracture without pneumothorax/pneumothorax. A few incidental tiny right lung calcified granulomas. No other bony, articular, or soft tissue abnormalities.
--- NOTE | 2023-09-27 09:04 | XRAY ---
Indication: Pain 5 days. Comparison: None Single PA chest demonstrates nondisplaced lateral right 5 rib fracture without pneumothorax/pneumothorax. A few incidental tiny pulmonary calcified granulomas. Remaining heart, lungs, and bony thorax unremarkable.
== END 2023-09-27 09:08 | disposition home or self-care (01) ==
LOC: ED 07:01
DX: S46.811A Strain of other muscles, fascia and tendons at shoulder and upper arm level, right arm, initial encounter (principal); X50.0XXA Overexertion from strenuous movement or load, initial encounter; Y93.F2 Activity, caregiving, lifting; Y92.002 Bathroom of unspecified non-institutional (private) residence as the place of occurrence of the external cause; M25.511 Pain in right shoulder; I10 Essential (primary) hypertension; Z28.310 Unvaccinated for COVID-19; Z79.891 Long term (current) use of opiate analgesic
CPT/HCPCS: 71045; 71100; 99282